=== PATIENT | female | born 1980 | race African-American/Black ===

== ENCOUNTER 2024-04-24 09:28 | Emergency (ER) | payer MEDICARE, OTHER ==
[2024-04-24] MEDS ORDERED: HYDROcodone/Acetaminophen 5/325 mg Tablet ONE (09:59)
== END 2024-04-24 11:00 | disposition home or self-care (01) ==
LOC: CSHERS 09:28
DX: M79.672 Pain in left foot (principal); X50.1XXA Overexertion from prolonged static or awkward postures, initial encounter
CPT/HCPCS: 99283